=== PATIENT | female | born 1995 | race African-American/Black ===

== ENCOUNTER 2016-09-25 01:22 | Emergency (ER) | payer BC ==
[~2016-09-25] VITALS: Ht 162.6 cm; Wt 61.2 kg
[~2016-09-25 01:22] MED LIST: CLR10 PO; MTR/400 PO; TRIA1SPR4 NAE
[2016-09-25 01:28] VITALS: TEMP 37.2; Ht 162.6 cm; Wt 61.2 kg
[2016-09-25 01:32] VITALS: O2SAT 99
[2016-09-25 02:06] LABS: BUN/CREATININE RATIO 12.1 (10-20); CALCIUM 8.7 mg/dl (8.5-10.1); CREATININE 0.8 mg/dl (0.60-1.20); POTASSIUM 3.3 mmol/L (3.5-5.1)
[2016-09-25] MEDS ORDERED: POTASSIUM CHLORIDE 10 MEQ TABCR PO STA (02:45)
--- NOTE | 2016-09-25 03:59 | EMERGENCY ROOM VISIT NOTE ---
History First contact with patient: 01:24 Chief Complaint: ALCOHOL OVERDOSE Stated Complaint: ALOCHOL OVERDOSE.POISONING Nursing Triage Summary: Patient brought to ER via private vehicle. Friends state patient was drinking at a [employer] stum[employer]in around and vomitting. Per friends no injury sustained. History of Present Illness The patient is a 21 year old female who presents to the Emergency Room with complaints of alcohol intoxication via friends. Patient was at a [employer] and was stumbling. She had a lot of alcohol. No drug use. Patient was vomiting. Patient denies chest pain, dyspnea, abdominal pain, fever, chills or any other medical complaints. Review of Systems See HPI for pertinent positives & negatives. A total of 10 systems reviewed and were otherwise negative. Past Medical/Surgical History Medical Problems: (1) Cough (2) No Known Active Medical Problems Social History Smoking Status: Unknown if Ever Smoked Housing Status: lives with roommate Occupation Status: [employer] student Current/Historical Medications Unable to Obtain Active Prescriptions or Reported Meds Allergies Coded Allergies: No Known Allergies (Unverified , 06/29/16) Physical Exam Vital Signs Date Time Temp Pulse Resp B/P Pulse Ox O2 Delivery O2 Flow Rate FiO2 09/25/16 03:00 62 105/56 98 Room Air 09/25/16 01:40 71 09/25/16 01:32 99 Room Air 09/25/16 01:32 99 Room Air 09/25/16 01:28 37.2 78 14 124/83 99 Room Air Physical Exam PHYSICAL EXAM: VITALS: Vitals are noted on the nurse's note and reviewed by myself. Vital signs stable. GENERAL: Pleasant female with EtOH odor with vomit on her, in no acute distress , nondiaphoretic, well-developed well-nourished. The patient is visibly intoxicated. SKIN: The skin was without obvious lacerations, abrasions, or rashes. There is no tenting of the skin. Capillary reflex less than 2 seconds. HEENT: Normocephalic, atraumatic. PERRLA. EOMI. Conjunctiva with mild injection without icterus. Tympanic membranes without erythema or effusion bilaterally no hemotympanum. External auditory canals are clear. Nares patent bilaterally. No epistaxis. Oropharynx without erythema or exudate. Uvula midline. Oral mucosal moist. No lymphadenopathy. Neck is supple without cervical spine tenderness. HEART: Regular rate and rhythm without murmurs gallops or rubs. Peripheral pulses 2+. LUNGS: Clear to auscultation bilaterally without wheezes, rales or rhonchi. ABDOMEN: Positive bowel sounds x 4. Normal tympanic percussion. Soft, nontender, without masses or organomegaly. MUSCULOSKELETAL: Gross motor function of the upper and lower extremities intact. The patient has a staggering gait. NEUROLOGIC: The patient is visibly intoxicated. Once they were more sober they were alert and oriented to person place and time. Medical Decision & Procedures Laboratory Results 09/25/16 01:38 Test 09/25/16 01:38 09/25/16 01:41 Anion Gap 11.0 mmol/L (3-11) Est Creatinine Clear Calc Drug Dose 96.1 ml/min Estimated GFR () 122.2 Estimated GFR (Non- 105.4 BUN/Creatinine Ratio 12.1 (10-20) Calcium Level 8.7 mg/dl (8.5-10.1) Ethyl Alcohol mg/dL 205.0 mg/dl (0-3) Bedside Glucose 98 mg/dl (70-90) ED Course Prior records/ancillary studies reviewed. Triage Nursing notes reviewed. Additional history obtained from friends. The patient's history was concerning for altered mental status and a possible alcohol overdose. Differential diagnosis: Etiologies such as alcohol intoxication, toxicologic, infection, hypoglycemia, electrolyte abnormalities, cardiac sources, intracerebral event, neurologic, as well as others were entertained. Physical examination: As above. The patient is clinically intoxicated. no trauma noted. ER treatment provided: Monitoring Aspiration precautions The patient was frequently reassessed. Diagnostic interpretation by me: Cardiac monitoring did not reveal any evidence of dysrhythmia. The labs revealed hypokalemia and this is replaced orally. The patient's blood alcohol level was 205 mg/dL. The patient's history was reviewed once they were more coherent and their intoxication cleared. The patient states they have been in good health recently and had no medical complaints. The patient admitted to consuming alcohol. No additional concerning findings were noted. The patient complained of no symptoms to suggest assault. This appears to be consistent with an isolated overdose of alcohol. By the evaluation outlined above emergent etiologies such as trauma, infection, hypoglycemia, electrolyte abnormalities, cardiac sources, intracerebral event, neurologic,as well as others were deemed relatively unlikely. The patient was informed about the findings as listed above. The patient was counseled on the dangers of excessive alcohol use. I gave my usual and customary discussion regarding this issue. All questions were answered and the patient was pleased with the treatment. Return instructions were outlined and the patient was discharged in stable condition once their mental status improved and a safe destination was confirmed. Outpatient prescription management: None Referral: The patient was referred back to their primary care physician for follow-up in 2 to 3 days for a recheck of their current condition. Medical Decision As above Impression Primary Impression: Alcohol use with intoxication Additional Impression: Hypokalemia Departure Information Dispostion Home / Self-Care Condition GOOD Prescriptions Unable to Obtain Active Prescriptions or Reported Meds Referrals No Doctor, Assigned (PCP) Patient Instructions My [facility] Additional Instructions Keep well-hydrated. Tylenol every 6 hours as needed for pain (Maximum 3000 mg Tylenol in 24 hr period). Follow up with family doctor and/or health services as needed. No driving for the next 24 hours. Recommend no alcohol for the next 48 hours and avoid binge drinking in the future. Return to ER sooner for chest pain, abdominal pain, worsening signs or symptoms or as needed. Problem Qualifiers
[2016-09-25] MEDS ORDERED: POTASSIUM CHLORIDE 10 MEQ TABCR ONE (05:49)
[2016-09-25 06:17] VITALS: BP 131/74; PULSE 80; O2SAT 99
== END 2016-09-25 06:15 | disposition home or self-care (01) ==
LOC: C.EDA 01:23
DX: F10.129 Alcohol abuse with intoxication, unspecified (principal); Y90.7 Blood alcohol level of 200-239 mg/100 ml; E87.6 Hypokalemia

== ENCOUNTER 2017-06-06 20:31 | Emergency (ER) | payer BC ==
[~2017-06-06] VITALS: Ht 160 cm; Wt 60.5 kg
[2017-06-06 20:47] VITALS: TEMP 37.1; Ht 160 cm; Wt 60.5 kg
[2017-06-06] MEDS ORDERED: XYLOCAINE 1%/SOD BICARB 20 ML VIAL INFIL STA (21:28)
[2017-06-06] MEDS ORDERED: SULF800T23 PO (22:10)
--- NOTE | 2017-06-06 22:13 | EMERGENCY ROOM VISIT NOTE ---
ED Visit Note First contact with patient: 20:59 CHIEF COMPLAINT: Bartholin's gland abscess HISTORY OF PRESENT ILLNESS: This 22-year-old female patient presents to the emergency department 2 days after they noticed a hard, red, tender area of the right labia. It is slowly getting larger, more painful and tender. No fever, chills, or loss of appetite. There has been no drainage from the area. There was no injury to the area preceding the infection. They rate the pain as severe and 8/10. Tetanus shot is up to date. They have tried nothing. The patient is not diabetic. The patient has no history of subcutaneous abscesses. Last menstrual period began on Wednesday. 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 She is sexually active with 1 male partner. REVIEW OF SYSTEMS: A 10 system review of systems was performed with positives and pertinent negatives listed in the history of present illness. All other systems were reviewed and are negative. ALLERGIES: None MEDICATIONS: None PMH: Scoliosis SOCIAL HISTORY: The patient is a [employer] student. She lives locally with her roommate. The patient denies drug, tobacco use. She does admit to occasional alcohol use. PHYSICAL EXAM: Vital Signs: Reviewed Nurse's notes, vital signs stable. GENERAL : This is a 22-year-old female, no acute distress, non toxic in appearance, well -developed well-nourished. SKIN: There is an erythematous indurated area on the right labia which measures about 2 cm in diameter. It is fluctuant but there is no pointing or drainage. There is a zone of inflammation around it but no lymphangitis. Capillary refill less than 2 seconds. MUSCULOSKELETAL: There is no limitation of the range of motion of the RLE. EMERGENCY DEPARTMENT COURSE: I examined the patient. Verbal consent was obtained to perform the procedure after discussing risks, benefits, and options regarding appropriate treatment. The patient is very hesitant to proceed with the procedure, as she "hates needles." She states she would like some time to think about the procedure. The patient was given approximately 15 minutes. I did re-check with the patient and she states she will proceed with the procedure. She states she just needed some time to mentally prepare herself. I did allow the patient another approximately 10-15 minutes prior to setting up for the procedure. And RN nurse geosciences faculty member, Simona, was present through the procedure and did assist with comforting the patient. After saline and Betadine cleansing and 2 mL of 1 % buffered lidocaine anesthesia, the abscess was incised with a number 11 scalpel blade. A large amount of purulent material was released with more expressed by pressure. Attempts were made to further probe the abscess cavity with a needle haul driver, however the patient became uncooperative and screamed through the procedure. The deep pocket was unable to be expressed. I did offer to re-anesthetize the abscess now that it has been opened and some material has been drained, but the patient refuses. The abscess cavity was then copiously irrigated with sterile saline under pressure. The area was then packed with bacitracin soaked packing. The area was cleaned with sterile saline and the patient was given a clean pad. The patient did not tolerate the procedure well, and cried/screamed extensively throughout. The patient was discharged home in stable condition. DIFFERENTIAL DIAGNOSIS: Abscess, cellulitis, bartholin's gland cyst, STD, malignancy, and others. DIAGNOSIS: Abscess of the Bartholin's gland DISCHARGE INSTRUCTIONS & TREATMENT: You were seen in the emergency department today for a Bartholin's gland abscess. This was drained to the best of my ability in the emergency department. I was unable to express the deep pocket due to discomfort, so I do encourage you to take all antibiotics as prescribed. I also encouraged you to follow up with gynecology as soon as possible for discussion regarding possible surgical excision. You were prescribed Bactrim to be taken twice daily. This is an antibiotic. All antibiotics have the potential to cause diarrhea. Stop this medication and contact a medical provider if you were to develop any significant adverse side effects including: wheezing, shortness of breath, passing out, vomiting, or a diffuse rash. Always take antibiotics as directed and COMPLETE the ENTIRE course regardless of the improvement of your symptoms. A small amount of packing was placed in the abscess. Please remove this tomorrow. Keep the area clean and dry as best as possible. You can shower. You may want to consider warm baths or sitz baths to help with drainage of the abscess. Return to the emergency department for fever, chills, nausea, vomiting, worsening redness or pain, worsening purulent drainage, or other associated symptoms. Problem List Medical Problems: (1) Cough Status: Resolved Current/Historical Medications Scheduled Sulfa/Trimethoprim (Bactrim Ds 800MG/160MG), 1 TAB PO BID Allergies Uncoded Allergies: SEASONAL (Allergy, Intermediate, ., 06/06/17) Vital Signs Date Time Temp Pulse Resp B/P (MAP) Pulse Ox O2 Delivery O2 Flow Rate FiO2 06/06/17 22:42 82 20 119/69 99 06/06/17 20:47 37.1 70 18 131/77 100 Room Air Medications Administered Medications (Trade) Dose Ordered Sig/Tabitha Route Start Time Stop Time Status Last Admin Dose Admin Trimethoprim/ Sulfamethoxazole (Sulfameth/ Trimeth Ds 800/ 160MG Home Pack) 1 homepack NOW STAT PO 06/06/17 22:23 06/06/17 22:24 DC 06/06/17 22:23 1 HOMEPACK Departure Information Impression Primary Impression: Bartholin's gland abscess Dispostion Home / Self-Care Condition GOOD Prescriptions Sulfa/Trimethoprim (Bactrim Ds 800MG/160MG) Tab 1 TAB PO BID for 10 Days, #20 TAB Prov: Adilia Arias PA-C 06/06/17 Referrals [facility] (PCP) Patient Instructions ED Bartholins Cyst [facility]adence, My [facility] Additional Instructions You were seen in the emergency department today for a Bartholin's gland abscess. This was drained to the best of my ability in the emergency department. I was unable to express the deep pocket due to discomfort, so I do encourage you to take all antibiotics as prescribed. I also encouraged you to follow up with gynecology as soon as possible for discussion regarding possible surgical excision. You were prescribed Bactrim to be taken twice daily. This is an antibiotic. All antibiotics have the potential to cause diarrhea. Stop this medication and contact a medical provider if you were to develop any significant adverse side effects including: wheezing, shortness of breath, passing out, vomiting, or a diffuse rash. Always take antibiotics as directed and COMPLETE the ENTIRE course regardless of the improvement of your symptoms. A small amount of packing was placed in the abscess. Please remove this tomorrow. Keep the area clean and dry as best as possible. You can shower. You may want to consider warm baths or sitz baths to help with drainage of the abscess. Return to the emergency department for fever, chills, nausea, vomiting, worsening redness or pain, worsening purulent drainage, or other associated symptoms.
[2017-06-06] MEDS ORDERED: SEPTRA DS HOME PACK 1 EA VIAL PO STA (22:23)
[2017-06-06] MEDS ORDERED: SEPTRA DS HOME PACK 1 EA VIAL PO ONE (22:24)
[2017-06-06 22:42] VITALS: BP 119/69; PULSE 82; O2SAT 99
== END 2017-06-06 22:46 | disposition home or self-care (01) ==
LOC: C.EDB 20:34 → C.EDC 22:46
DX: N75.1 Abscess of Bartholin's gland (principal); M41.9 Scoliosis, unspecified

== ENCOUNTER 2017-06-21 21:02 | Emergency (ER) | payer BC ==
[~2017-06-21] VITALS: Ht 160 cm; Wt 58.4 kg
[2017-06-21 21:10] VITALS: TEMP 37; Ht 160 cm; Wt 58.4 kg
[2017-06-21] MEDS ORDERED: SULF800T23 PO (21:57)
[2017-06-21] MEDS ORDERED: SEPTRA DS HOME PACK 1 EA VIAL PO ONE (22:00)
[2017-06-21 22:11] VITALS: BP 119/63; PULSE 68; O2SAT 100
--- NOTE | 2017-06-22 00:42 | EMERGENCY ROOM VISIT NOTE ---
History First contact with patient: 21:49 Chief Complaint: MEDICATION REFILL REQUEST Stated Complaint: BARTHOLIAON CYST,MED REFIL History of Present Illness The patient is a 22 year old female who presents to the Emergency Room for a refill of Bactrim. The patient was diagnosed with a Bartholin gland cyst here in the department about 2 weeks ago. Incision and drainage was attempted, however no deep pocket was expressed at that time. The patient was started on Bactrim and asked to follow with [facility] for further care and management. The patient is a student locally, and plans to have [facility] follow-up over break, roughly 6 weeks from now. She states that while she was on antibiotic her symptoms improved. She completed the medication as prescribed, but states that she has some increased and worsening symptoms. She has not had fever or chills. No other complaints. Review of Systems More than 10 systems were reviewed and otherwise negative with the exception of history of present illness. Past Medical/Surgical History Medical Problems: (1) Cough (2) No Known Active Medical Problems Family History No pertinent family history Social History Smoking Status: Never Smoker Housing Status: lives with roommate Occupation Status: [employer] student Current/Historical Medications Scheduled Sulfa/Trimethoprim (Bactrim Ds 800MG/160MG), 1 TAB PO BID Physical Exam Vital Signs Date Time Temp Pulse Resp B/P (MAP) Pulse Ox O2 Delivery O2 Flow Rate FiO2 06/21/17 22:11 68 16 119/63 100 Room Air 06/21/17 21:10 37.0 121 18 116/72 96 Room Air Physical Exam VITALS: Vitals are noted on the nurse's note and reviewed by myself. Vital signs stable. GENERAL: Well-developed, well-nourished, female, who is in no acute distress and resting comfortably. Patient is cooperative with the examination. HEART: Regular rate and rhythm without murmurs gallops or rubs. LUNGS: Clear to auscultation bilaterally without wheezes, rales or rhonchi. No retractions or accessory muscle use. NEURO: Patient was alert and oriented to person place and time. CN II through XII grossly intact. Medical Decision & Procedures Medications Administered Medications (Trade) Dose Ordered Sig/Tabitha Route Start Time Stop Time Status Last Admin Dose Admin Trimethoprim/ Sulfamethoxazole (Sulfameth/ Trimeth Ds 800/ 160MG Home Pack) 1 homepack UD ONCE PO 10/9/17 22:00 06/21/17 22:01 DC 06/21/17 22:10 1 [facility] ED Course Physical exam and history were performed. Nursing notes, EMR, and Medication List were personally reviewed. Patient appears to have reports of a Bartholin's gland cyst/abscess. She defers pelvic exam at this time and is requesting antibiotics as this seems to have helped her previously. I will provide her a course of Bactrim. I strongly recommended the patient follow with [facility] as they do have [facility] health providers who may provide more rapid treatment than 6 weeks from now. The patient was otherwise invited the ER with any new, worsening, or concerning symptoms. The chart was completed utilizing [employer] Voice Recognition Software. Grammatical errors, random word insertions, pronoun errors, and incomplete sentences are an occasional consequence of this system due to software limitations, ambient noise, and hardware issues. Any formal questions or concerns about the content, text, or information contained within the body of this dictation should be directly addressed to the provider for clarification. . Medical Decision Differential diagnosis: Etiologies such as cellulitis, abscess, MRSA infection, DVT, necrotizing fasciitis, dermatitis, drug eruption, as well as others were entertained.. Impression Primary Impression: Encounter for medication refill Additional Impression: Bartholin's gland abscess Departure Information Dispostion Home / Self-Care Condition GOOD Prescriptions Sulfa/Trimethoprim (Bactrim Ds 800MG/160MG) Tab 1 TAB PO BID for 9 Days, #18 TAB Prov: Moses Montilla PA-C 06/21/17 Forms HOME CARE DOCUMENTATION FORM, IMPORTANT VISIT INFORMATION Patient Instructions My [facility] Additional Instructions You were seen and evaluated today on an emergency basis only. This is not a substitute for, or an effort to provide, complete comprehensive medical care. It is not possible to recognize and treat all injuries or illnesses in a single emergency department visit. For this reason it is recommended that you followup with [facility] in the next 1-2 days for recheck. They have [facility] providers who may be able to assist you. Trimethoprim-Sulfamethoxazole(Bactrim DS): Take one pill twice daily for 10 days for your infection. All antibiotics can cause diarrhea. If this occurs and you feel worse or it does not resolve in 1-2 days follow up with your doctor or return to the Emergency Department as this could be signs of serious underlying problems. Any medication can cause an allergic reaction, stop the pills immediately and return to the ER for rash, hives, breathing difficulties, or swelling. You are welcome to return to the emergency department anytime with new, worsening, or concerning symptoms. Problem Qualifiers
== END 2017-06-21 22:12 | disposition home or self-care (01) ==
LOC: C.EDB 21:02 → C.EDD 22:12
DX: Z76.0 Encounter for issue of repeat prescription (principal); N75.1 Abscess of Bartholin's gland